=== PATIENT | male | born 1945 | race Caucasian/White ===

== ENCOUNTER → 2016-09-12 | Outpatient (CLI) | payer OTHER, BC | LOC: BHLMT 09:00 | PROVIDERS: ATTEND Internal Medicine Cardiovascular Disease | DX: I25.5 Ischemic cardiomyopathy (principal); J44.9 Chronic obstructive pulmonary disease, unspecified; I47.2 Ventricular tachycardia; C18.9 Malignant neoplasm of colon, unspecified | CPT/HCPCS: 93005-PO ==